=== PATIENT | female | born 1980 | race Caucasian/White ===

== ENCOUNTER 2020-11-15 06:55 | Day surgery (SDC) | payer OTHER ==
[~2020-11-15 06:55] MED LIST: Lactated Ringers 1,000 ML IV SCH; Lidocaine 1%/Sod Bicarbonate in NS 8.4% 1 ML Syringe IDERM PRN; Sodium Chloride 0.9% 10 ML Syringe FLUSH PRN
[2020-11-15] MEDS ORDERED: Sodium Chloride 0.9% 50 ML SDV ONE (07:09)
[2020-11-15] MEDS ORDERED: Lidocaine 1% with EPINEPHrine 1:100,000 10 ML MDV ONE (07:09)
[2020-11-15] MEDS ORDERED: Bupivacaine 0.5% 30 ML SDV ONE (07:09)
--- NOTE | 2020-11-15 07:16 | PCM.PREANE ---
Preanesthetic Assessment - Procedure Proposed Procedure: Laparoscopic assisted vaginal hysterectomy with bilateral salpingectomy - Anesthesia/Transfusion/Family Hx Anesthesia History: Prior Anesthesia Without Reaction Family History of Anesthesia Reaction: No Transfusion History: No Prior Transfusion(s) Intubation History: Unknown - Review of Systems General: No Symptoms Pulmonary: No Symptoms Cardiovascular: No Symptoms Gastrointestinal: No Symptoms Neurological: No Symptoms Other: Reports: Easy Bruising, Anxiety - Physical Assessment NPO Status Date: 11/14/20 NPO Status Time: 20:00 Vital Signs: BP 137/74 HR 82 RR 16 96% RA 98.9 Height: 1.63 m Weight: 91.671 kg ASA Class: 2 Mental Status: Alert & Oriented x3 Airway Class: Mallampati = 2 Dentition: Reports: Normal Dentition Thyro-Mental Finger Breadths: 3 Mouth Opening Finger Breadths: 3 ROM/Head Extension: Full Lungs: Clear to Auscultation, Normal Respiratory Effort Cardiovascular: Regular Rate, Regular Rhythm, No Murmurs - Lab Values: Patient will have labs drawn this morning, will review labs prior to proceeding with surgery - Imaging/EKG Impressions: EKG 11/15/20: - Allergies Allergies/Adverse Reactions: Allergies Allergy/AdvReac Type Severity Reaction Status Date / Time No Known Allergies Allergy Verified 11/11/20 12:29 - Blood Blood Available: No - Acknowledgements Anesthesia Type Planned: General Anesthesia Pt an Appropriate Candidate for the Planned Anesthesia: Yes Alternatives and Risks of Anesthesia Discussed w Pt/Guardian: Yes Pt/Guardian Understands and Agrees with Anesthesia Plan: Yes PreAnesthesia Questionnaire HEENT History: Reports: Allergic Rhinitis, Impaired Vision (wears glasses) Cardiovascular History: Reports: Hypertension Respiratory History: Reports: None Gastrointestinal History: Reports: None Genitourinary History: Reports: None RIPSHEAR OPERATOR History: Reports: None Musculoskeletal History: Reports: None Neurological History: Reports: None Psychiatric History: Reports: Anxiety, Other (See Below) Other Psychiatric History: restless sleep Endocrine/Metabolic History: Reports: Obesity/BMI 30+ Hematologic History: Reports: None Immunologic History: Reports: None Oncologic (Cancer) History: Reports: None Dermatologic History: Reports: Other (See Below) Other Dermatologic History: paronychia of finger - Past Surgical History Head Surgeries/Procedures: Reports: None HEENT Surgical History: Reports: None Cardiovascular Surgical History: Reports: None Respiratory Surgical History: Reports: None GI Surgical History: Reports: None, Other (See Below) Other GI Surgeries/Procedures: Abdominoplasty per patient "tummy tuck" Female Surgical History: Reports: Section Other Female Surgeries/Procedures: x2 Male Surgical History: Reports: None Endocrine Surgical History: Reports: None Neurological Surgical History: Reports: None Musculoskeletal Surgical History: Reports: Arthroscopic Knee Oncologic Surgical History: Reports: None Dermatological Surgical History: Reports: None - SUBSTANCE USE Tobacco Use Status *Q: Never Tobacco User Tobacco Use Within Last Twelve Months: No Second Hand Smoke Exposure: No Days Per Week of Alcohol Use: 1 Number of Drinks Per Day: 1 Total Drinks Per Week: 1 Date of Last Drink: 11/05/20 Time of Last Drink: 20:00 Recreational Drug Use History: No - HOME MEDS Home Medications: Home Meds Losartan/Hydrochlorothiazide [Losartan-HCTZ 100-12.5 MG] 1 tab PO DAILY 11/11/20 [History] Multivitamin 1 tab PO DAILY 11/11/20 [History] buPROPion [Wellbutrin SR] 150 mg PO BID 11/11/20 [History] - CURRENT (IN HOUSE) MEDS Current Meds: Current Medications Lactated Ringer's (Ringers, Lactated) 1,000 mls @ 125 mls/hr IV ASDIRECTED SHIRLEY Stop: 11/15/20 23:00 Lidocaine/Sodium Bicarbonate (Lidocaine 1%/Sod Bicarbonate In Ns 8.4% 1 Ml Syringe) 0.25 ml IDERM ONETIME PRN PRN Reason: Prior to IV Start Stop: 11/15/20 18:00 Sodium Chloride (Sodium Chloride 0.9% 10 Ml Syringe) 10 ml FLUSH ASDIRECTED PRN PRN Reason: Keep Vein Open Stop: 11/15/20 18:00 Discontinued Medications Bupivacaine HCl (Bupivacaine 0.5% 30 Ml Sdv) Confirm Administered Dose 30 ml .ROUTE .STK-MED ONE Stop: 11/15/20 07:10 Lidocaine/Epinephrine (Lidocaine 1% With Epinephrine 1:100,000 10 Ml Mdv) Confirm Administered Dose 10 ml .ROUTE .STK-MED ONE Stop: 11/15/20 07:10 Sodium Chloride (Sodium Chloride 0.9% 50 Ml Sdv) Confirm Administered Dose 50 ml .ROUTE .STK-MED ONE Stop: 11/15/20 07:10
[2020-11-15] MEDS ORDERED: Propofol 200 MG/20 ML SDV ONE ×2 (07:33→07:34)
[2020-11-15] MEDS ORDERED: fentaNYL 250 MCG/5 ML SDV ONE (07:34)
[2020-11-15] MEDS ORDERED: Midazolam 1 MG/ML 2 ML SDV ONE (07:34)
[2020-11-15] MEDS ORDERED: ceFAZolin 1 GM Vial ONE (07:35)
[2020-11-15] MEDS ORDERED: Dexamethasone 4 MG/ML 5 ML MDV ONE (07:35)
[2020-11-15] MEDS ORDERED: Ketorolac 30 MG/ML SDV ONE (07:35)
[2020-11-15] MEDS ORDERED: Ondansetron 4 MG/2 ML SDV ONE (07:35)
[2020-11-15] MEDS ORDERED: Rocuronium 50 MG/5 ML Vial ONE (07:35)
[2020-11-15] MEDS ORDERED: diphenhydrAMINE 50 MG/ML SDV ONE (07:35)
[2020-11-15] MEDS ORDERED: Dexmedetomidine 200 MCG/2 ML SDV ONE (08:22)
[2020-11-15] MEDS ORDERED: Sodium Chloride 0.9% 100 ML ONE (08:22)
[2020-11-15] MEDS ORDERED: HYDROmorphone 0.5 MG/0.5 ML Syringe ONE ×2 (08:42→08:46)
[2020-11-15] MEDS ORDERED: Lactated Ringers 1,000 ML ONE (08:50)
--- NOTE | 2020-11-15 09:11 | PCM.EKG ---
#1 Interpretation EKG Date: 11/15/20 Time: 07:36 Rhythm: NSR Rate (Beats/Min): 72 [place]: Normal P-Wave: Present QRS: Other (Early R wave transition consider septal hypertrophy) ST-T: Normal QT: Normal EKG Interpretation Comments: Borderline ECG
[2020-11-15] MEDS ORDERED: Ondansetron 4 MG/2 ML SDV IVPUSH PRN (09:26)
[2020-11-15] MEDS ORDERED: Acetaminophen/oxyCODONE 325-5 MG Tab PO PRN (09:26)
--- NOTE | 2020-11-15 09:31 | PCM.OPNOTE ---
- General Post-Op/Procedure Note Date of Surgery/Procedure: 11/15/20 Operative Procedure(s): Total vaginal hysterectomy with bilateral salpingectomy Findings: Uterus was normal size. Ovaries appeared normal and functional. Fallopian tubes unremarkable. There was adequate relaxation to allow for vaginal approach to hysterectomy. Pre Op Diagnosis: 1. Menorrhagia. 2. Dysmenorrhea Post-Op Diagnosis: Same Anesthesia Technique: General ET Tube Other Anesthesia Type: Lidocaine quarter percent with [id number] mLlocal Primary Surgeon: Lazarus Artis Secondary Surgeon: Alex Perez Anesthesia Provider: Destiney King Reason Fabric Worker Was Necessary: Retraction, assistance, patient safety, quality of care. Pathology: Uterus, bilateral fallopian tubes in one specimen container. Fluid Replacement, Intraop: 1,000 EBL in mLs: 125 Complications: None Condition: Good Free Text/Narrative:: Surgery duration: 28 minutes Procedure: The patient was placed in supine position on the operating table. General endotracheal anesthesia was accomplished. An exam under anesthesia was performed and it was felt that patient had adequate relaxation, relatively normal uterine size and no contraindications to attempting a vaginal broach for the hysterectomy. After positioning, and adequate prep and drape, the procedure was then performed. Sterile speculum was placed in the vagina and cervix was visualized. Cervix was injected with lidocaine quarter percent with epinephrine- 20 mL used. A full circumference incision was made in the cervical epithelium. The bladder was pushed well back off cervix. Posterior cul-de-sac was then entered sharply without problems. Left uterosacral was crossclamped with a Enseal vessel closure system. The left uterosacral and then the right uterosacral ligament pedicles were developed using the Enseal system. The anterior cul-de-sac was then entered without problems and the uterine vasculature, cardinal ligament and broad ligament then developed using Enseal vessel closure system. The uterus was inverted at this time and upper broad ligament fallopian tube pedicles were crossclamped with Alexsandra clamps. Specimen was totally removed. Both these pedicles were then secured with the Enseal vessel closure system. Left and right fallopian tube was normal in appearance.. Using Enseal vessel cl osure system each of the tubes was then removed and sent with the specimen. The patient was found to be hemostatically intact at this time. Vaginal cuff was sutured for hemostatic reasons with a running locked suture of 0 Monocryl from the 2 o'clock position to the 10 o'clock position posteriorly. Vaginal cuff was then closed from right to left side with a running locked suture of 0 Monocryl. Patient was returned to supine position and awakened from general endotracheal anesthesia. She tolerated the procedure and left the operating room in satisfactory condition.
--- NOTE | 2020-11-15 09:35 | PCM.POSTAN ---
POST ANESTHESIA ASSESSMENT - MENTAL STATUS Mental Status: Alert, Oriented - VITAL SIGNS Vital Signs: Last Vital Signs Temp 97.3 F 11/15/20 09:12 Pulse 64 11/15/20 09:25 Resp 17 11/15/20 09:25 BP 124/74 11/15/20 09:25 Pulse Ox 97 11/15/20 09:25 - RESPIRATORY Respiratory Status: Respiratory Rate WNL, Airway Patent, O2 Saturation Stable - CARDIOVASCULAR CV Status: Pulse Rate WNL, Blood Pressure Stable - GASTROINTESTINAL GI Status: No Symptoms - PAIN Pain Score: 0 - POST OP HYDRATION Hydration Status: Adequate & Stable
--- NOTE | 2020-11-15 11:14 | PCM48HPAN ---
Post Anesthesia Note - EVALUATION WITHIN 48HRS OF ANESTHETIC Vital Signs in Normal Range: Yes Patient Participated in Evaluation: Yes Respiratory Function Stable: Yes Airway Patent: Yes Cardiovascular Function Stable: Yes Hydration Status Stable: Yes Pain Control Satisfactory: Yes Nausea and Vomiting Control Satisfactory: Yes Mental Status Recovered: Yes Vital Signs: Last Vital Signs Temp 97.3 F 11/15/20 09:12 Pulse 70 11/15/20 10:12 Resp 18 11/15/20 10:12 BP 124/85 11/15/20 10:12 Pulse Ox 97 11/15/20 10:12 - COMMENTS/OBSERVATIONS Free Text/Narrative:: rests in bed. po pain meds taken.
[2020-11-15 12:08] VITALS: BP 148/99; PULSE 78
[2020-11-15] MEDS ORDERED: Ketorolac 30 MG/ML SDV IVPUSH SCH (13:30)
[2020-11-15] MEDS ORDERED: Ibuprofen 600 MG Tab PO PRN (19:30)
== END 2020-11-15 12:07 | disposition home or self-care (01) ==
LOC: JD.SDS 06:55
PROVIDERS: ATTEND Obstetrics & Gynecology
DX: N83.8 Other noninflammatory disorders of ovary, fallopian tube and broad ligament (principal); N92.0 Excessive and frequent menstruation with regular cycle; I10 Essential (primary) hypertension; E66.9 Obesity, unspecified; Z79.899 Other long term (current) drug therapy; Z98.890 Other specified postprocedural states; Z68.34 Body mass index [BMI] 34.0-34.9, adult
CPT/HCPCS: 36415; 58262; 81003; 81025; 82565; 85025; 86850; 86900; 86901; 93005; A9270; J0690; J1100; J1170; J1200; J1885; J2250; J2405; J2704; J2710; J3010; J7120; 00944; J3490